=== PATIENT | male | born 1990 | race African-American/Black ===

== ENCOUNTER 2021-03-31 11:05 | Emergency (ER) | payer OTHER ==
[~2021-03-31] VITALS: Ht 170.2 cm; Wt 78.2 kg
[2021-03-31] MEDS ORDERED: IBUP200T45 PO (11:55)
[2021-03-31] MEDS ORDERED: KETOROLAC 30 MG/ML 1ML VIAL IM ONE (14:00)
[2021-03-31] MEDS ORDERED: NAPR-837 PO (14:14)
[2021-03-31] MEDS ORDERED: METH-1165 PO (14:14)
[2021-03-31 14:18] VITALS: BP 123/68
== END 2021-03-31 14:20 | disposition home or self-care (01) ==
LOC: M ED 11:05
DX: M54.5 Low back pain (principal)
CPT/HCPCS: 96372; 99283; J1885

== ENCOUNTER → 2022-04-20 | Outpatient (REF) ==
[~2022-04-20] MED LIST: IBUP200T46 PO; METH-1165 PO; NAPR-837 PO
== END ==
LOC: M PLAIMG 14:20
PROVIDERS: ATTEND Internal Medicine
DX: M54.50 Low back pain, unspecified (principal)